=== PATIENT | female | born 1980 | race Caucasian/White ===

== ENCOUNTER 2018-07-05 06:49 | Day surgery (SDC) | payer OTHER, SELFPAY ==
[2018-06-20 15:23] VITALS: BMI 23.8
[2018-07-05] VITALS (9 sets, daily range): BP systolic 101–135; BP diastolic 60–86; PULSE 17–87; RESP 11–18; TEMP 36.3–37.4; O2SAT 99–100; BMI 23.8
[2018-07-05] MEDS: LACTATED RINGERS 1,000 ML 42 ML IV (07:25)
[2018-07-05] MEDS: CEFAZOLIN 2 GM/100 ML FROZ.PIGGY IV (07:50)
--- NOTE | 2018-07-05 07:50 | PM.HP.1 ---
History of Present Illness Date Patient Seen: 07/05/18 Time Patient Seen: 07:50 Chief complaint: [id number] REPAIR LIH Narrative: The patient is a woman here for repair of a LIH Patient History Medical History Hypothyroidism (Acute) Left inguinal hernia (Acute) Surgical History History of right inguinal hernia repair (Acute) Previous section (Acute) Family & Social History Family History: Reviewed 07/05/18 by Oliver Carrera MD Social History: household members spouse,children Tobacco & Substance use: Smoking Status Never smoker Meds Home Medications Medication Instructions Recorded Confirmed Type levothyroxine [Synthroid] 75 mcg PO QAM #0 11/05/16 07/05/18 History cetirizine 10 mg tablet 10 mg PO DAILY 04/25/18 07/05/18 History folic acid 800 mcg tablet 800 mcg PO DAILY 04/25/18 07/05/18 History oral contraceptive 1 tab PO DAILY 04/25/18 07/05/18 History 1 tab PO DAILY 04/25/18 07/05/18 History vitamin,calcium,wqmwmbpk-kold-ssjyt acid tablet Allergies Allergy/AdvReac Type Severity Reaction Status Date / Time No Known Allergies Allergy Uncoded 07/05/18 07:18 Review of Systems Review of Systems All systems reviewed & are unremarkable except as noted in HPI and below Exam Vital Signs (past 8 hours): - 07/05/18 06:57 Temperature 97.4 F L Pulse Rate 79 Respiratory Rate 16 Blood Pressure 135/86 H Oxygen Delivery Method Room Air Narrative Exam Narrative: Operative no apparent distress alert and oriented. Lungs are clear to auscultation. Heart regular rate and rhythm no murmur gallop. Abdomen is scaphoid soft there is reducible left inguinal hernia Assessment & Plan Plan: Assessment/Plan Narrative: For repair of hernia discussed procedure rationale risks of bleeding infection nerve injury causing numbness or pain recurrence all discussed she appears to understand wishes to proceed
--- NOTE | 2018-07-05 07:52 | PM.PREOP ---
Pre-operative Note Interval Note Pre-op Check: Yes History & Physical exam performed today by Physician Changes: No
--- NOTE | 2018-07-05 08:17 | SUR.OPER ---
Supine on padded OR bed, head on pillow, arms secured on padded arm boards at <90 degrees abduction, legs uncrossed, safety belt at thigh, tape over blanket over lower legs.
[2018-07-05] MEDS: BUPIVACAINE 0.5% (PF) VIAL 30 ML INJ (08:27)
--- NOTE | 2018-07-05 09:37 | PM.OP.1 ---
Operative Date/Time/Diagnoses Date of procedure: 07/05/18 Time of procedure: 09:23 Pre-op diagnosis: Left inguinal hernia reducible Post-op diagnosis: same Procedure & Clinicians Procedure: Repair with plug and patch technique Same procedure as scheduled: Yes Indications: Symptomatic hernia Surgeon: Oliver Carrera Click Yes if Unassisted: Yes Anesthesia Type: General Operative Notes Findings: Hernia adjacent to the remnant cord structures. Treated with a small plug and patch Closure Type: primary Specimen(s): none sent Implants & Drains: Mesh Estimated Blood Loss (mL): 5 Procedure in detail: The patient was placed supine on the operating room table and underwent general LMA anesthesia. SHe was prepped and draped in the usual fashion. A transverse incision was made overlying the internal ring extending her scar and carried down to the level of the external oblique. The external oblique was opened parallel with its fibers through the external ring. The cord structures were elevated. The residual cremaster was opened proximally and search made for an indirect sac.[none was found]. The floor was examined and was found to be[intact except at the internal ring. On palpation through it there was no evidence of a femoral hernia]. The cord structures were detached from their attachment near the pubic tubercle and suture ligated with 3 0 Vicryl. This was reduced through the internal ring and a small plug placed through the ring and tacked into place with interrupted 0 Tycron suture. The muscle of the internal oblique was closed over the internal ring obliterating it. A patch was placed across the floor and tacked at the pubic tubercle, the posterior lamella of the anterior rectus sheath, the ilioinguinal ligament, and superior lateral to the internal ring. Sutures of 0 Tycron were used to secure the mesh. The external oblique was closed with a running 3 0 Polysorb obliterating the external ring. The subcu was closed with interrupted 3 0 Polysorb. The skin was closed with a running 4 0 Polysorb subcuticular stitch and Steri-Strips. Dressing was applied, the patient was awakened, and the patient was taken to the recovery area in good condition. Complications: none Condition: stable Disposition: PACU Plan for aftercare: Follow-up in the office
[2018-07-05] MEDS: HYDROCODONE/ACET 5/325 TABLET 1 TAB PO (10:05)
== END 2018-07-05 10:25 | disposition home or self-care (01) ==
PROVIDERS: PCP Physician Assistant; Visit Provider Specialist
PROC: (CPT 49505; principal; 2018-07-05 07:45)
DX: K40.90 Unilateral inguinal hernia, without obstruction or gangrene, not specified as recurrent (principal); E03.9 Hypothyroidism, unspecified
CPT/HCPCS: 49505; C1781; J0690; J1100; J2250; J2405; J2704; J3010

== ENCOUNTER → 2018-08-22 09:45 | Outpatient (CLI) | payer OTHER, SELFPAY ==
--- NOTE | 2018-08-22 13:58 | DI.US.S_ITS ---
PROCEDURE: US ABDOMEN LIMITED INDICATIONS: eval painful area, L medial groin TECHNIQUE: Real-time focused scanning was performed of the abdomen, with image documentation. COMPARISON: None. FINDINGS: No left inguinal hernia or adenopathy is seen. There is superficial pelvic venous varicosities present in the region of discomfort. IMPRESSION: Superficial pelvic venous varicosities. No inguinal hernia or adenopathy seen. Dictated by: Roberto HOLLOWAY Interpreted: Kaelyn Miranda MD on 08/22/2018 at 14:13 Approved by: Kaelyn Miranda MD, PhD on 08/22/2018 at 15:08
== END ==
PROVIDERS: PCP Physician Assistant; Visit Provider Specialist
DX: R10.32 Left lower quadrant pain (principal); I86.2 Pelvic varices
CPT/HCPCS: 76705

== ENCOUNTER → 2018-10-27 09:44 | Outpatient (CLI) | payer OTHER, SELFPAY ==
--- NOTE | 2018-10-27 | DI.MRI.S_ITS ---
PROCEDURE: MR ANKLE LT WO CON INDICATIONS: LEFT ANKLE PAIN TECHNIQUE: Noncontrast sagittal T1 spin echo and T2 fast spin echo with fat saturation, axial proton density fast spin echo and T2 fast spin echo with fat saturation, coronal T1 spin echo and T2 fast spin echo with fat saturation through the ankle/hindfoot. COMPARISON: None. FINDINGS: Image quality: Excellent. Bones and joints: No bone marrow contusions or fractures. No hindfoot coalitions. No osteochondral injuries of the talar dome. There is a minimal amount of tibiotalar joint fluid. Medial structures: The posterior tibialis, flexor digitorum longus, and flexor hallucis longus tendons are intact. The posterior tibial neurovascular bundle appears normal within the tarsal tunnel, without extrinsic mass effect. The deep and superficial layers of the deltoid ligament appear intact. The spring ligament components appear intact. Lateral structures: The anterior talofibular, calcaneofibular, and posterior talofibular ligaments appear intact. More superiorly, the anterior and posterior tibiofibular ligaments also appear intact, as is the intermalleolar ligament. The tibiofibular syndesmosis is normal in width at 2 mm or less. The peroneus longus and brevis tendons demonstrate normal location and morphology. Adjacent bony peroneal tubercle and retrotrochlear prominence are normal in size. The sinus tarsi demonstrates normal fatty signal, without edema, fibrosis, or cyst formation. The calcaneonavicular and calcaneocuboid components of the bifurcate ligament appear intact. The dorsal calcaneocuboid ligament appears intact. Anterior structures: The tibialis anterior, extensor hallucis longus, and extensor digitorum longus tendons appear intact. The dorsal talonavicular ligament appears intact. Posterior and plantar structures: Achilles tendon is intact with minimal peritendinous edema distally. Medial and lateral bands of the plantar fascia are of normal thickness. No abductor digiti quinti muscle atrophy to suggest Garza neuropathy. IMPRESSION: 1. No evidence of internal derangement. 2. Minimal peritendinitis along the Achilles tendon distally. Dictated by: Po Miranda M.D. on 10/29/2018 at 13:29 Approved by: Po Miranda M.D. on 10/29/2018 at 13:40
== END ==
PROVIDERS: PCP Physician Assistant; Visit Provider Podiatrist
DX: M25.572 Pain in left ankle and joints of left foot (principal)
CPT/HCPCS: 73721